=== PATIENT | female | born 1955 | race Caucasian/White ===

== ENCOUNTER → 2016-12-27 | Outpatient (CLI) | payer OTHER ==
[2016-12-27 12:43] LABS: MEAN CORPUSCULAR HGB CONC 34.3 g/dl (32.0-36.5); RED CELL DISTRIBUTION WIDTH 12.7 % (11.5-14.5); WHITE BLOOD COUNT 5.6 K/mm3 (4.0-10.0)
== END ==
LOC: M WUC 08:36
PROVIDERS: ATTEND Physician Assistant Medical
DX: R93.3 Abnormal findings on diagnostic imaging of other parts of digestive tract (principal)

== ENCOUNTER → 2017-01-07 | Outpatient (CLI) | payer OTHER ==
[~2017-01-07] VITALS: Ht 172.7 cm; Wt 83.9 kg
[~2017-01-07] MED LIST: NS 1,000 ML IV SCH; PROPOFOL 200 MG/20 ML VIAL As Ordered ONE
--- NOTE | 2017-01-07 12:58 | ROOR ---
Patient Name: Cindy Valverde Procedure Date: 01/07/2017 12:04 PM Date of : 1955 Age: 61 Room: [facility] Gender: Female Note Status: Finalized Procedure: Colonoscopy Indications: Abnormal PET scan of the GI tract, Rectosigmoid activity on PET Providers: Evan LÓPEZ MD Referring MD: MAIDA SALAS Requesting Provider: Medicines: Monitored Anesthesia Care Complications: No immediate complications. Procedure: Pre-Anesthesia Assessment: - The heart rate, respiratory rate, oxygen saturations, blood pressure, adequacy of pulmonary ventilation, and response to care were monitored throughout the procedure. The Colonoscope was introduced through the anus and advanced to the cecum, identified by appendiceal orifice and ileocecal valve. The colonoscopy was performed without difficulty. The patient tolerated the procedure well. The quality of the bowel preparation was good. Findings: The perianal and digital rectal examinations were normal. (Exam: Complete, Prep: Good or Excellent.) A 15 mm polyp was found in the recto-sigmoid colon. The polyp was pedunculated. An endoloop was maneuvered over the polyp stalk and closed at the mucosal attachment prior to removal in order to prevent bleeding. The polyp was removed with a hot snare. Resection and retrieval were complete. To prevent bleeding after the polypectomy, two hemostatic clips were successfully placed (MR conditional). There was no bleeding at the end of the procedure. The exam was otherwise without abnormality on direct and retroflexion views. Impression: - (Exam: Complete, Prep: Good or Excellent.) - One 15 mm polyp at the recto-sigmoid colon, removed with a hot snare. Resected and retrieved. Clips (MR conditional) were placed. - The examination was otherwise normal on direct and retroflexion views. Recommendation: - Await pathology results. - Telephone endoscopist for pathology results in 2 weeks. - If on pathology confirms that the removal is complete, then will repeat colonoscopy in 3 years Evan López MD Evan LÓPEZ MD 01/07/2017 12:57:55 PM This report has been signed electronically. Number of Addenda: 0 Note Initiated On: 01/07/2017 12:04 PM Estimated Blood Loss: Estimated blood loss: none.
[2017-01-07 13:15] VITALS: BP 176/88
== END | disposition home or self-care (01) ==
LOC: M OPP 11:04
PROVIDERS: ATTEND Internal Medicine Gastroenterology
DX: R93.3 Abnormal findings on diagnostic imaging of other parts of digestive tract (principal); D12.7 Benign neoplasm of rectosigmoid junction